=== PATIENT | female | born 1975 ===

== ENCOUNTER 2020-12-18 06:00 | Day surgery (SDC) | payer OTHER ==
[~2020-12-18 06:00] MED LIST: BENADR PO; ZYRTEC
== END 2020-12-18 13:55 | disposition home or self-care (01) ==
LOC: CIR.AMB 06:00
PROVIDERS: ATTEND Obstetrics & Gynecology
DX: N84.0 Polyp of corpus uteri (principal); Z20.822 Contact with and (suspected) exposure to COVID-19